=== PATIENT | female | born 1975 | race African-American/Black ===

== ENCOUNTER 2024-01-20 10:06 | Emergency (ER) | payer BC ==
[~2024-01-20] VITALS: Ht 170.2 cm; Wt 103.4 kg
[2024-01-20 10:12] VITALS: O2SAT 100
[2024-01-20] MEDS: ACETAMINOPHEN 325MG TABLET PO ONE (11:00)
[2024-01-20] MEDS ORDERED: METH-653 MT (11:58)
[2024-01-20] MEDS ORDERED: LIDO700A15 TP (11:58)
[2024-01-20] MEDS: METHOCARBAMOL 500MG TABLET PO ONE (12:00)
[2024-01-20 12:53] VITALS: BP 138/74; PULSE 71; RESP 16; TEMP 98.2
== END 2024-01-20 12:52 | disposition home or self-care (01) ==
LOC: ER 10:06
DX: S10.81XA Abrasion of other specified part of neck, initial encounter (principal); M54.2 Cervicalgia; I10 Essential (primary) hypertension; Z90.710 Acquired absence of both cervix and uterus; Z98.890 Other specified postprocedural states; V49.9XXA Car occupant (driver) (passenger) injured in unspecified traffic accident, initial encounter; Y93.89 Activity, other specified; Y92.89 Other specified places as the place of occurrence of the external cause; Y99.8 Other external cause status
CPT/HCPCS: 81025; 99284